=== PATIENT | female | born 1950 | race Caucasian/White ===

== ENCOUNTER → 2019-09-30 | Outpatient (CLI) | payer OTHER ==
[~2019-09-30] MED LIST: ACTONEL150 MG PO; ADULT LOW DOSE81 MG PO; ASPIRIN325 PO; B-COMPLEX-VITA1 EACH PO; BACTRIM DS TAB1 EACH PO; BENADRYL25 MG PO; CELEXA 20 MG TA20 M1 PO; CELEXA 20 MG TA20 MG PO; CO Q-10200 MG PO; COLACE100 MG PO; CYMBALTA; CYMBALTA60 MG PO; FISH OIL 1,0001 EAC8 PO; FISHOIL; FLOMAX PO; LISINOPRIL5 MG PO; LORTAB 5 MG/5001 TA1 PO; MAGNESIUM OXID200 MG PO; MAGNESIUM100 MG PO; METAMUCIL PAC1 UDPKT PO; MOM PO; MULTIVITAMINS PO; NEURONTIN 300M300 M2 PO; OXYCODONE HCL 55 MG PO; PERCOCET 5-3251 EACH PO; PHENERGAN 25 MG25 M1 PO; PREMARIN0.625 MG PO; TUMS CHEWA500 MG/11 PO; VITAMIN B-12100 MCG PO; VITAMIN B-121000 MCG PO; VITAMIN D31000 UNI2 PO; VITAMIN E400 UNIT PO; XARELTO10 MG PO
[2019-09-30 12:56] LABS: HEMATOCRIT 42.3 % (37.0-47.0); HEMOGLOBIN 14.7 gm/dL (12.0-15.0); MCH 32.8 pg (26.0-34.0); MCHC 34.7 g/dL (28.0-37.0); MCV 94.5 fL (80.0-100.0); MPV 8.7 fl. (7.2-11.1); RBC 4.48 mil/uL (4.20-5.00); WBC 6.5 thou/uL (4.0-11.0)
[2019-09-30 13:08] LABS: CALCIUM 9.2 mg/dL (8.5-10.1); POTASSIUM 4.5 mmol/L (3.5-5.1); TOTAL BILIRUBIN 0.5 mg/dL (<0.1-1.0); TOTAL PROTEIN 7.4 g/dL (6.4-8.2); URIC ACID* 5.3 mg/dL (2.6-7.2)
[2019-10-01 14:07] LABS: ANA INTERPRETATION Negative (Negative)
[2019-10-07 14:07] LABS: B.burgdorf.IgG Negative (()); B.burgdorf.IgM Negative (())
== END ==
LOC: M.LAB 12:06
PROVIDERS: Family Medicine; ATTEND Orthopaedic Surgery
DX: Z13.828 Encounter for screening for other musculoskeletal disorder (principal)